=== PATIENT | male | born 1965 | race Caucasian/White ===

== ENCOUNTER 2025-07-06 09:46 | Outpatient (CLI) | payer SELFPAY ==
[2025-07-06 17:47] LABS: TSH (W/Ref FT4) 4.95 uIU/mL (0.55-4.78)
[2025-07-06 17:51] LABS: ALT 26 U/L (10-49); AST 20 U/L (<34); Albumin 4.4 g/dL (3.2-5.0); Alkaline Phosphatase 115 U/L (46-116); Anion Gap 9.8 mmol/L (3-11); BUN 24 mg/dL (9-23); Bilirubin, Total 0.50 mg/dL (0.2-1.2); CO2 27.2 mmol/L (20.0-31.0); Calcium 10.2 mg/dL (8.3-10.6); Chloride 101 mmol/L (98-107); Cholesterol 232 mg/dL (<200); Glucose 296 mg/dL (74-106); HDL Cholesterol 48 mg/dL (>40); Potassium 4.1 mmol/L (3.5-5.1); Sodium 138 mmol/L (136-145); Total Protein 7.8 g/dL (5.7-8.2)
[2025-07-06 23:09] LABS: PSA, Screening 1.0 ng/mL (<=4.5)
== END 2025-07-06 09:47 | disposition home or self-care (01) ==
LOC: LOS 09:46
PROVIDERS: PCP Nurse Practitioner Family; Visit Provider Nurse Practitioner Family
DX: Z13.220 Encounter for screening for lipoid disorders (principal); I10 Essential (primary) hypertension; Z12.5 Encounter for screening for malignant neoplasm of prostate; E03.9 Hypothyroidism, unspecified
CPT/HCPCS: 36415; 80053; 80061; 84153; 84439; 84443